=== PATIENT | male | born 1990 | race Caucasian/White ===

== ENCOUNTER 2017-02-01 17:25 | Emergency (ER) | payer OTHER ==
--- NOTE | 2017-02-01 19:19 | DIAGNOSTIC IMAGING REPORT ---
PROCEDURE: CT ABDOMEN/PELVIS W/O CONTRAST INDICATION: ABDOMINAL PAIN TECHNIQUE: Axial CT images were obtained through the abdomen and pelvis without IV contrast. Coronal and sagittal reformations were created. COMPARISON: None. FINDINGS: Clear lung bases. Normal size heart. No hiatal hernia. Mild hepatic steatosis. Decompressed gallbladder. The stomach is filled with ingested material. The unenhanced appearance of the liver, gallbladder, adrenal glands, kidneys, pancreas and spleen is otherwise normal. No secondary sign of solid or hollow organ injury. The abdominal aorta is normal in its course and caliber. There are no suspicious calcifications, retroperitoneal adenopathy or masses. The stomach, upper bowel loops, and mesentery appears normal. Intact anterior abdominal wall. No free fluid, or inflammation. The unenhanced appearance of the prostate gland, seminal vesicles, urinary bladder, pelvic vessels, and pelvic bowel loops is normal. Normal appendix. No suspicious calcifications, free fluid, or mass. Intact osseous structures. IMPRESSION: 1. No CT evidence of trauma on this unenhanced scan. 2. Mild hepatic steatosis. 3. Discussed with Michael Hanna in the emergency room. All CT scans at this facility use dose modulation, iterative reconstruction, and/or weight-based dosing when appropriate to reduce radiation dose to as low as reasonably achievable.
--- NOTE | 2017-02-01 19:40 | ED NURSING NOTES ---
Clinical Report - Nurses [facility] [address] [place] [address] 02/01/2017 17:26 [id number] TRI[facility] Triage time 17:33. Acuity: LEVEL 4. Chief Complaint: FALL and (right ribs). Alert. No acute distress. MICHELLE COMA SCORE: [place] Coma Scale: 15- eyes open spontaneously (4); best verbal response- oriented x 4 (5); best motor response- obeys commands (6). --17:41 Sarita Young R.N. 17:33 02/01/17. BP: 137/86. HR: 117. RR: 18. O2 saturation: 100% on room air. Temp: 98.2 F (oral). Pain level now: 07/30. --17:41 Sarita Young R.N. Weight: 158.7 kg stated. Height/Length: 71 inches Per Patient. BMI: 48.8. --17:37 Sarita Young R.N. Medications Ibuprofen Oral. Omeprazole Oral. Zoloft Oral. --17:36 Sarita Young R.N. Medication/allergy information source: the patient. --17:41 Sarita Young R.N. Allergies No Known Drug Allergy. --17:36 Sarita Young R.N. History Arrived by private vehicle. Historian: patient. Accompanied by family. Primary physician (Marie). Location of injuries: back and right hip. This occurred (last Monday). ( tripped on a box and fell). SOCIAL HX: Heavy tobacco smoker- less than 1 pack per day. History of drug use: marijuana. No alcohol use. FALL RISK ASSESSMENT: Fall risk assessment completed. No fall risk identified. FUNCTIONAL ASSESSMENT: Functional assessment: no impairments noted. LEARNING NEEDS ASSESSMENT: The learning needs assessment revealed no barriers. --17:41 Sarita Young R.N. PROBLEMS: Joint pain. Gastroesophageal Reflux Disease. Depression. --17:37 Sarita Young R.N. ADDITIONAL SURGERIES: no known surgeries. Assessment GENERAL / NEURO / PSYCH: Alert. Oriented X 4. Appears in no acute distress. RESPIRATORY: Respirations not labored. SKIN: Skin is warm and dry. --17:41 Sarita Young R.N. Interventions ID band on patient. To treatment room. --17:41 Sarita Young R.N. PHYSICAL ASSESSMENT 17:43 02/01/17. Ambulatory to room. Patient gowned. GENERAL / NEURO / PSYCH: Alert. Oriented X 4. Appears in no acute distress. RESPIRATORY: Respirations not labored. SKIN: Skin is warm and dry. --17:43 Sarita Young R.N. NURSING PROGRESS NOTES 17:43 02/01/17. Patient gowned. Call light placed in reach. Side rails up x 1. Bed placed in lowest position. Brakes of bed on. --17:43 aSrita Young R.N. <<STRICKEN ENTRY-- 18:09 pt now states he's allergis to IV contrast dye, it makes him vomit. --18:10 Sarita Young R.N. --END STRIKE>> Correction --18:10 Sarita Young R.N. 18:09 pt now states he's allergic to IV contrast dye, it makes him vomit. --18:10 Sarita Young R.N. Care transferred and report received. --19:23 Melissa Ridley R.N. DISPOSITION / DISCHARGE Condition at departure: stable. No learning barriers present. Discharge instructions provided and reviewed with the patient. Reviewed medication(s) side effects, precautions, dosing and course information. Prescription(s) given to the patient. Patient verbalized understanding. Written instructions provided in Japanese. The patient was discharged home and accompanied by eviscerator. He left the Emergency Department ambulatory and via private vehicle. Flight Control Specialist driving. --19:53 Melissa Ridley R.N. 19:52 02/01/17. BP: 140/80. HR: 109. RR: 16 (regular and unlabored). O2 saturation: 99% on room air. Temp: deferred. Pain level now: 07/30. --19:53 Melissa Ridley R.N. Locked/Released at 02/01/2017 19:54 by Melissa Ridley R.N.
--- NOTE | 2017-02-01 19:40 | ED ORDER SUMMARY ---
..... Patient: LOIS FABIAN OrderSheet [facility] VisitID: [id number] [place] [address] 26y, M Registration Date/Time: 02/01/2017 ORDER SHEET Weight: 158.7 kg (stated) Allergies: No Known Drug Allergy GENERAL ORDERS: UA-Culture if indicated Urgent (17:56 02/01/2017 EKoroleva P.A.-C) (Ack 18:02 KHoerner) (19:50 Ten R.N.) CT Abd/Pel w Cont (No) (see lab) Urgent (17:59 02/01/2017 EKoroleva P.A.-C) (Ack 18:02 KHoerner) (Cancelled: Other18:11 EKoroleva P.A.-C) CBC w Diff Urgent (17:59 02/01/2017 EKoroleva P.A.-C) (Ack 18:02 KHoerner) (Cancelled: Other18:11 EKoroleva P.A.-C) BMP Urgent (17:59 02/01/2017 EKoroleva P.A.-C) (Ack 18:02 KHoerner) (Cancelled: Other18:11 EKoroleva P.A.-C) CT Abd/Pel wo Cont Urgent (18:11 02/01/2017 EKoroleva P.A.-C) (Ack 18:12 KHoerner) (18:42 MCampbell) MEDICATION ORDERS: IV FLUIDS: ORDER SHEET NOTES: [Electronically signed by Melissa Ridley R.N. (19:54 02/01/2017)] [Electronically signed by Myrtle Hanna P.A.-C (21:11 02/01/2017)] [Electronically locked/signed by Melissa Ridley R.N. (19:54 02/01/2017)]
--- NOTE | 2017-02-01 19:40 | ED ORDER SUMMARY ---
..... Patient: LOIS FABIAN OrderSheet [facility] VisitID: [id number] [place] [address] 26y, M Registration Date/Time: 02/01/2017 ORDER SHEET Weight: 158.7 kg (stated) Allergies: No Known Drug Allergy GENERAL ORDERS: UA-Culture if indicated Urgent (17:56 02/01/2017 EKoroleva P.A.-C) (Ack 18:02 KHoerner) (19:50 Ten R.N.) CT Abd/Pel w Cont (No) (see lab) Urgent (17:59 02/01/2017 EKoroleva P.A.-C) (Ack 18:02 KHoerner) (Cancelled: Other18:11 EKoroleva P.A.-C) CBC w Diff Urgent (17:59 02/01/2017 EKoroleva P.A.-C) (Ack 18:02 KHoerner) (Cancelled: Other18:11 EKoroleva P.A.-C) BMP Urgent (17:59 02/01/2017 EKoroleva P.A.-C) (Ack 18:02 KHoerner) (Cancelled: Other18:11 EKoroleva P.A.-C) CT Abd/Pel wo Cont Urgent (18:11 02/01/2017 EKoroleva P.A.-C) (Ack 18:12 KHoerner) (18:42 MCampbell) MEDICATION ORDERS: IV FLUIDS: ORDER SHEET NOTES: [Electronically signed by Melissa Ridley R.N. (19:54 02/01/2017)] [Electronically signed by Myrtle Hanna P.A.-C (21:11 02/01/2017)] [Electronically locked/signed by Melissa Ridley R.N. (19:54 02/01/2017)]
--- NOTE | 2017-02-01 19:40 | ED CLINICAL REPORT ---
Clinical Report - Physicians/Mid Levels [facility] [address] [place] [address] 02/01/2017 17:26 [id number] Time Seen: 17:46 Mar 15 2016. Arrived- By private vehicle. HISTORY OF PRESENT ILLNESS Chief Complaint: FALL. Location of injuries- (abd/ flank/ back). The injury occurred 4 day sprior. Fell. Occurred at home. No blow to the head or neck pain. (fell slipped onto a desk/ floor, pain to back/ flank/ abdomen since. NO loc. No injury to head/ neck. NO injury to chest). REVIEW OF SYSTEMS No loss of vision, hearing loss, chest pain or difficulty breathing. All systems otherwise negative, except as recorded above. ADDITIONAL NOTES The nursing notes have been reviewed. PHYSICAL EXAM Vital Signs: 02/01/2017 17:33 BP: 137/86. HR: 117. RR: 18. O2 saturation: 100%. Temp: 98.2 F. Pain level now: 9/10. Appearance: Alert. No acute distress. No backboard or C-collar. Eyes: Pupils equal, round and reactive to light. No ocular injury. Neck: Painless ROM. Non-tender. No vertebral tenderness. Posterior neck: No tenderness or swelling. CVS: Heart sounds normal. Pulses normal. Respiratory: Breath sounds normal. Chest nontender. No chest wall injury. Abdomen: No visible injury. Abdomen: mild tenderness located in the right side of the abdomen and right flank. No swelling. No abrasion. No puncture wound. The bowel sounds are not abnormal. Back: Tenderness (right lumbar/ lateral to vertebral region). Skin: Skin intact. Skin warm. Extremities: Normal inspection. LABS, X-RAYS, AND EKG CT Abdomen: IMPRESSION: 1. No CT evidence of trauma on this unenhanced scan. 2. Mild hepatic steatosis. 3. Discussed with Michael Hanna in the emergency room. All CT scans at this facility use dose modulation, iterative reconstruction, and/or weight-based dosing when appropriate to reduce radiation dose to as low as reasonably achievable. Electronically Final signed by:Mary Dos Santos MD 02/01/2017 7:19:36 PM. PROGRESS AND PROCEDURES Course of Care: Given location of pain, flank area, CT of the abdomen was ordered for patient, he has no osseous tenderness. No lumbar tenderness. He is stable. Ambulatory. No injury to the 100 ache. He drove himself here. Here with family. NO signs of acute surgical abdomen. 02/01/2017 19:52 BP: 140/80. HR: 109. RR: 16. O2 saturation: 99%. Pain level now: 9/10. Patient is stable. Symptoms better. Disposition: Discharged. Condition: good. CLINICAL IMPRESSION Multiple contusions right lower quadrant of the abdomen and to the lower back. INSTRUCTIONS Apply ice. (Your CT looks GREAT, no signs of fracture or internal injury). Prescription Medications: Ultram 50 mg: take 1 orally every 6 hours as needed for pain. Dispense twenty (20). No refills. Substitution is permissible. OTC Medications: Take acetaminophen (Tylenol, Datril, etc.) and ibuprofen (Advil, Nuprin, etc.) according to label instructions. Available over the counter. Follow-up: Follow up with your doctor in three days. (Electronically signed by Myrtle Hanna P.A.-C 02/01/2017 21:11)
--- NOTE | 2017-02-01 19:40 | ED NURSING NOTES ---
Clinical Report - Nurses [facility] [address] [place] [address] 02/01/2017 17:26 [id number] Triage time 17:33. Acuity: LEVEL 4. Chief Complaint: FALL and (right ribs). Alert. No acute distress. MICHELLE COMA SCORE: [place] Coma Scale: 15- eyes open spontaneously (4); best verbal response- oriented x 4 (5); best motor response- obeys commands (6). --17:41 Sarita Young R.N. 17:33 02/01/17. BP: 137/86. HR: 117. RR: 18. O2 saturation: 100% on room air. Temp: 98.2 F (oral). Pain level now: 07/30. --17:41 Sarita Young R.N. Weight: 158.7 kg stated. Height/Length: 71 inches Per Patient. BMI: 48.8. --17:37 Sarita Young R.N. Medications Ibuprofen Oral. Omeprazole Oral. Zoloft Oral. --17:36 Sarita Young R.N. Medication/allergy information source: the patient. --17:41 Sarita Young R.N. Allergies No Known Drug Allergy. --17:36 Sarita Young R.N. History Arrived by private vehicle. Historian: patient. Accompanied by family. Primary physician (Marie). Location of injuries: back and right hip. This occurred (last Monday). ( tripped on a box and fell). SOCIAL HX: Heavy tobacco smoker- less than 1 pack per day. History of drug use: marijuana. No alcohol use. FALL RISK ASSESSMENT: Fall risk assessment completed. No fall risk identified. FUNCTIONAL ASSESSMENT: Functional assessment: no impairments noted. LEARNING NEEDS ASSESSMENT: The learning needs assessment revealed no barriers. --17:41 Sarita Young R.N. PROBLEMS: Joint pain. Gastroesophageal Reflux Disease. Depression. --17:37 Sarita Young R.N. ADDITIONAL SURGERIES: no known surgeries. Assessment GENERAL / NEURO / PSYCH: Alert. Oriented X 4. Appears in no acute distress. RESPIRATORY: Respirations not labored. SKIN: Skin is warm and dry. --17:41 Sarita Young R.N. Interventions ID band on patient. To treatment room. --17:41 Sarita Young R.N. PHYSICAL ASSESSMENT 17:43 02/01/17. Ambulatory to room. Patient gowned. GENERAL / NEURO / PSYCH: Alert. Oriented X 4. Appears in no acute distress. RESPIRATORY: Respirations not labored. SKIN: Skin is warm and dry. --17:43 Sarita Young R.N. NURSING PROGRESS NOTES 17:43 02/01/17. Patient gowned. Call light placed in reach. Side rails up x 1. Bed placed in lowest position. Brakes of bed on. --17:43 Sarita Young R.N. <<STRICKEN ENTRY-- 18:09 pt now states he's allergis to IV contrast dye, it makes him vomit. --18:10 Sarita Young R.N. --END STRIKE>> Correction --18:10 Sarita Young R.N. 18:09 pt now states he's allergic to IV contrast dye, it makes him vomit. --18:10 Sarita Young R.N. Care transferred and report received. --19:23 Melissa Ridley R.N. DISPOSITION / DISCHARGE Condition at departure: stable. No learning barriers present. Discharge instructions provided and reviewed with the patient. Reviewed medication(s) side effects, precautions, dosing and course information. Prescription(s) given to the patient. Patient verbalized understanding. Written instructions provided in Albanian. The patient was discharged home and accompanied by inspector multifocal lens. He left the Emergency Department ambulatory and via private vehicle. Supervisor [employer] driving. --19:53 Melissa Ridley R.N. 19:52 02/01/17. BP: 140/80. HR: 109. RR: 16 (regular and unlabored). O2 saturation: 99% on room air. Temp: deferred. Pain level now: 07/30. --19:53 Melissa Ridley R.N. Locked/Released at 02/01/2017 19:54 by Melissa Ridley R.N.
--- NOTE | 2017-02-01 21:11 | ED DISCHARGE INSTRUCTIONS ---
Patient: LOIS FABIAN General Instructions [facility] VisitID: [id number] [place] [address] 26y, M Registration Date/Time: 02/01/2017 Multiple contusions right lower quadrant of the abdomen and to the lower back. INSTRUCTIONS Apply ice. (Your CT looks GREAT, no signs of fracture or internal injury). Prescription Medications: Ultram 50 mg: take 1 orally every 6 hours as needed for pain. Dispense twenty (20). No refills. Substitution is permissible. OTC Medications: Take acetaminophen (Tylenol, Datril, etc.) and ibuprofen (Advil, Nuprin, etc.) according to label instructions. Available over the counter. Follow-up: Follow up with your doctor in three days. ADDITIONAL INFORMATION Contusion,Soft Tissue You have a CONTUSION, which is a bruise with swelling and some bleeding under the skin. There are no broken bones. This injury takes a few days to a few weeks to heal. Home Care: 1) Keep the injured part elevated to reduce pain and swelling. This is especially important during the first 48 hours. 2) Make an ice pack (ice cubes in a plastic bag, wrapped in a towel) and apply for 20 minutes every 1-2 hours the first day. Continue this 3-4 times a day until the pain and swelling goes away. 3) You may use acetaminophen (Tylenol) or ibuprofen (Motrin, Advil) to control pain, unless another pain medicine was prescribed. [ NOTE : If you have chronic liver or kidney disease or ever had a stomach ulcer or GI bleeding, talk with your doctor before using these medicines.] Follow Up with your doctor or this facility if you are not improving within the next THREE days. [NOTE: If X-rays were taken, they will be reviewed by a radiologist. You will be notified of any new findings that may affect your care.] Get Prompt Medical Attention if any of the following occur: -- Pain or swelling increases -- Injured arm or leg becomes cold, blue, numb or tingly -- Redness, warmth or drainage from the skin Contusion, Back You have a CONTUSION of the back. This is a bruise with swelling and some bleeding under the skin. There are no broken bones. This injury takes a few days to a few weeks to heal. It is normal to feel muscle stiffness and aching in the area of injury the next day. Home Care: 1) Rest and relax your back muscles until you are feeling better. 2) Apply an ice pack (crushed or cubed ice in a plastic bag, wrapped in a towel) for 20 minutes every 2-4 hours during the first two days after a new injury. Local heat (hot shower, hot bath or heating pad) and massage will help reduce muscle spasm . Some patients feel best alternating treatments. Use the method that feels best to you for. 3) You may use acetaminophen (Tylenol) or ibuprofen (Motrin, Advil) to control pain, unless another pain medicine was prescribed. [ NOTE : If you have chronic liver or kidney disease or ever had a stomach ulcer or GI bleeding, talk with your doctor before using these medicines.] Follow Up with your doctor or this facility if your symptoms do not start to improve after three days. [NOTE: If X-rays were taken, they will be reviewed by a radiologist. You will be notified of any new findings that may affect your care.] Get Prompt Medical Attention if any of the following occur: -- Pain becomes worse or spreads to one or both legs -- Weakness or numbness in one or both legs -- Loss of bowel or bladder control -- Numbness in the groin or genital area -- Redness, warmth or drainage from the skin You have been given the following additional information: Contusion, Soft Tissue Contusion, Back (Electronically signed by Myrtle Hanna P.A.-C 02/01/2017 21:11)
--- NOTE | 2017-02-01 21:11 | ED MAR SUMMARY ---
..... Medication Administration Record [facility] [address] [place] [address] Patient: LOIS FABIAN Visit ID: [id number] 26y, M Weight: 158.7 kg Height/Length: 71 in BMI: 48.8 ALLERGIES: No Known Drug Allergy
--- NOTE | 2017-02-01 21:11 | ED MAR SUMMARY ---
..... Medication Administration Record [facility] [address] [place] [address] Patient: LOIS FABIAN Visit ID: [id number] 26y, M Weight: 158.7 kg Height/Length: 71 in BMI: 48.8 ALLERGIES: No Known Drug Allergy
--- NOTE | 2017-02-01 21:12 | ED MED RECONCILIATION SUMMARY ---
Patient: LOIS FABIAN Medication Reconciliation Report [facility] VisitID: [id number] [place] [address] 26y, M Registration Date/Time: 02/01/2017 Weight: 158.7 kg Height/Length: 71 in. BMI: 48.8 ALLERGIES: No Known Drug Allergy The patient's Home Medications are listed below: THE FOLLOWING MEDICATIONS NEED TO BE RECONCILED: Ibuprofen Oral Omeprazole Oral Zoloft Oral The source(s) of the original Home Medication information: patient The following Medications were given to the patient in the Emergency Department: None. The following Medications were prescribed to the patient: Take acetaminophen (Tylenol, Datril, etc.) and ibuprofen (Advil, Nuprin, etc.) according to label instructions. Available over the counter. -- Myrtle Hanna, P.A.-C Ultram 50 mg: take 1 orally every 6 hours as needed for pain. Dispense twenty (20). No refills. Substitution is permissible. -- Myrtle Hanna, P.A.-C
--- NOTE | 2017-02-01 21:12 | ED MED RECONCILIATION SUMMARY ---
Patient: LOIS FABIAN Medication Reconciliation Report [facility] VisitID: [id number] [place] [address] 26y, M Registration Date/Time: 02/01/2017 Weight: 158.7 kg Height/Length: 71 in. BMI: 48.8 ALLERGIES: No Known Drug Allergy The patient's Home Medications are listed below: THE FOLLOWING MEDICATIONS NEED TO BE RECONCILED: Ibuprofen Oral Omeprazole Oral Zoloft Oral The source(s) of the original Home Medication information: patient The following Medications were given to the patient in the Emergency Department: None. The following Medications were prescribed to the patient: Take acetaminophen (Tylenol, Datril, etc.) and ibuprofen (Advil, Nuprin, etc.) according to label instructions. Available over the counter. -- Myrtle Hanna, P.A.-C Ultram 50 mg: take 1 orally every 6 hours as needed for pain. Dispense twenty (20). No refills. Substitution is permissible. -- Myrtle Hanna, P.A.-C
== END 2017-02-01 19:50 ==
LOC: ED SRH 17:25
DX: S30.1XXA Contusion of abdominal wall, initial encounter (principal); S30.0XXA Contusion of lower back and pelvis, initial encounter; W01.190A Fall on same level from slipping, tripping and stumbling with subsequent striking against furniture, initial encounter; Y92.009 Unspecified place in unspecified non-institutional (private) residence as the place of occurrence of the external cause; Y93.9 Activity, unspecified; Y99.9 Unspecified external cause status
CPT/HCPCS: 90004